=== PATIENT | female | born 1955 | race Caucasian/White ===

== ENCOUNTER 2022-06-24 06:05 | Emergency (ER) | payer MEDICARE, BC, SELFPAY ==
[2022-06-24 06:20] VITALS: BP 181/104; PULSE 99; RESP 20; TEMP 37.2; O2SAT 95; BMI 42.5
--- NOTE | 2022-06-24 06:33 | ED.GENADULT ---
HPI - General Adult General Chief complaint: Ear/Nose/Throat Problem Stated complaint: Bad cold for a week/sinus pain/ear pain Time Seen by Provider: 06/24/22 06:23 Source: patient Mode of arrival: ambulatory Limitations: no limitations History of Present Illness HPI narrative: 66-year-old female with a notable history of rheumatoid arthritis on therapy with methotrexate presents to the emergency department with a 7 day history of nasal congestion, loss of voice. Symptoms worsening to include ear pressure and increased facial pain today. She has been using Tylenol and facial steaming with some temporary improvement in her symptoms. Has not used any nasal steroids or decongestants. No fevers over 100.4. Did report a low-grade fever of 99 at home today only. No prior history of sinus surgeries or recurrent sinus infections. Has been around multiple family members in the last few days. Difficult to sleep at night due to the postnasal drip and congestion but no rosa shortness of breath. No known exposures to COVID. No chest pain, no shortness of breath, no GI changes. ROS is negative times 12 systems with the exception of the HEENT symptoms as described above. Past medical history notable for hypertension, rheumatoid arthritis, diet-controlled type 2 diabetes. Home medications Celebrex, Protonix, methotrexate, losartan. Surgically she denies any sinus or facial surgeries. Socially no smoking and no pertinent travel. Multiple antibiotic allergies including penicillin, sulfas, azithromycin. When I specifically asked she states that the azithromycin caused hives to the records report that this only caused nausea which would be much more common. Related Data Home Medications Medication Instructions Recorded Confirmed celecoxib 200 mg capsule 200 mg PO BID 06/24/22 06/24/22 folic acid 400 mcg tablet 400 mcg PO DAILY 06/24/22 06/24/22 losartan 100 mg tablet 100 mg PO DAILY 06/24/22 06/24/22 methotrexate sodium 2.5 mg tablet 2.5 mg PO 06/24/22 pantoprazole 40 mg tablet,delayed 40 mg PO DAILY 06/24/22 06/24/22 release (Protonix) Allergies Allergy/AdvReac Type Severity Reaction Status Date / Time aspirin Allergy Verified 06/24/22 06:24 Penicillins Allergy Verified 06/24/22 06:24 azithromycin [From Zithromax] AdvReac Nausea Verified 06/24/22 06:24 Sulfa (Sulfonamide AdvReac Verified 06/24/22 06:24 Antibiotics) [facility] Social History Smoking Status: Former smoker What tobacco products do you use: cigarettes Smoking quit date/years: >15 years ago Do you use any of these nicotine containing products: None How often do you have a drink containing alcohol: monthly or less AUDIT-C Alcohol total score: 1 Non-prescribed substance use: denies use Exam Const: Vital Signs, click to edit/add: Vital Signs - 24 hr 06/24/22 06:20 Temperature 99 F Pulse Rate [Pulse Oximeter] 99 Respiratory Rate 20 Blood Pressure [Ri ght Upper Arm] 181/104 H Pulse Oximetry 95 Oxygen Delivery Me thod Room Air Documenting provider has reviewed patient's vital signs: yes Common normals: no apparent distress General appearance: cooperative, comfortable and well kempt HENMT: Common normals: normocephalic, external ears normal and TM's normal bilaterally Head and scalp: normocephalic Face and sinus: sinus tenderness Nose: nares normal and other (Nasal passages with very mild erythema. Minimal swelling. Clear mucus ) External ear: external ears normal Tympanic membrane: TM's normal bilaterally Mouth: oral and palatal mucosa normal and other (Dentures noted. Mild erythema to the posterior pharynx with postnasal drip) Teeth and gingiva: dentures Other: Oropharynx with mild redness to the posterior pharynx, clear mucus postnasal drip but no swelling. No enlargement of tonsils. Eye: Common normals: conjunctivae normal and no scleral icterus Conjunctiva: conjunctiva(e) normal Neck & C-Spine: Common normals: full ROM Other: Very mild anterior cervical and submandibular lymphadenopathy. Resp: Common normals: normal respiratory effort, no use of accessory muscles and clear to auscultation bilaterally Effort & inspection: able to speak in complete sentences Auscultation: clear to auscultation bilaterally Cardio: Common normals: regular rate, regular rhythm, S1 normal heart sound, S2 normal heart sound, no murmurs and peripheral pulses 2+ throughout Rate: regular rate Rhythm: regular rhythm Heart sounds: S1 normal and S2 normal Peripheral pulses: pulses 2+ throughout Extremity: Common normals: normal capillary refill and no pedal edema Neuro: Speech: speech normal Motor exam: no tremor noted and no movement abnormalities noted Psych: Common normals: cooperative, affect normal and activity/motor behavior normal Appearance: well kempt Insight: insight good Judgement: judgment good Skin: Common normals: no rashes or lesions noted General skin exam: no rashes or lesions noted Course Course Hospital Course: Suspect viral etiology. Seven days duration with slight worsening of temperature is concerning though in a patient who is immunosuppressed. We discussed this briefly. I do recommend swabs specifically for RSV but to include COVID and influenza as well due to current high disease burden. Let her know that this will take about an hour to run. I will update her with the results and then we will further discuss the plan of care. Vital Signs Vital signs: Initial Vital Signs Temperature 99 F 06/24/22 06:20 Temperature Source Temporal Artery Scan 06/24/22 06:20 Pulse Rate 99 06/24/22 06:20 Respiratory Rate 20 06/24/22 06:20 Blood Pressure 181/104 H 06/24/22 06:20 Blood Pressure Mean 129 06/24/22 06:20 Blood Pressure Position Semi-Fowlers 06/24/22 06:20 Pulse Oximetry 95 06/24/22 06:20 Oxygen Delivery Method 06/24/22 06:20 Vital Signs Temperature 99 F 06/24/22 06:20 Pulse Rate 99 06/24/22 06:20 Respiratory Rate 20 06/24/22 06:20 Blood Pressure 181/104 H 06/24/22 06:20 Pulse Oximetry 95 06/24/22 06:20 Oxygen Delivery Method 06/24/22 06:20 Temperature 99 F 06/24/22 06:20 Pulse Rate 99 06/24/22 06:20 Respiratory Rate 20 06/24/22 06:20 Blood Pressure 181/104 H 06/24/22 06:20 Pulse Oximetry 95 06/24/22 06:20 Oxygen Delivery Method 06/24/22 06:20 Medical Decision Making MDM Narrative Medical decision making narrative: Swabs discussed with patient. RSV positive, as expected. Do not see any signs of a bacterial infection that would warrant antibiotic therapy even with her history of methotrexate use. Reviewed signs and symptoms of severe illness and alarm symptoms that would warrant ED presentation. Patient will purchase [id number] nasal saline and follow up with primary care if not improving in a couple of weeks. Lab Data Labs: Lab Results 06/24/22 06/24/22 Range/Units 06:29 06:29 SARS-CoV-2 (PCR) Cancelled Negative SARS-CoV-2 Influenza Type A (PCR) Cancelled Negative PCR FLU A Influenza Type B (PCR) Cancelled Negative PCR FLU B RSV (PCR) POSITIVE PCR RSV A (Negative) Discharge Plan Discharge Clinical Impression: Respiratory syncytial virus (RSV) infection Patient Disposition: Home, Self-Care Condition: Stable Instructions: Respiratory Syncytial Virus (ED) Additional Instructions: Your swabs are positive for RSV, a viral illness that can make very small children very ill. It is also common in adults and is characterized by a scratchy voice that travels into sinus congestion. This is not a bacterial infection and does not benefit in any way from antibiotics. I strongly recommend nasal saline spray which you can purchase [id number] and is very inexpensive. I would spray this in my nose every 2 hours while awake. It is okay to use decongestants, Tylenol, ibuprofen as needed for fevers and comfort. This tends to be a 3 week illness. If you have persistent daily fevers contact her primary care provider for further guidance. Even with the patient on methotrexate, there are no additional available treatment at this time. Please wear your mask when out in public for the next 2 weeks. Try to avoid unnecessary social outings until you have been feeling well for at least 48 hours. I am hoping that you will feel well for Thanksgiving. Activity Level: Light activity Discharge Diet: Regular Prescriptions: No Action celecoxib 200 mg capsule 200 mg PO BID Label Comments: TAKE ONE CAPSULE BY MOUTH TWICE A DAY WITH MEALS methotrexate sodium 2.5 mg tablet 2.5 mg PO Label Comments: TAKE 7 TABLETS BY MOUTH ONCE WEEKLY losartan 100 mg tablet 100 mg PO DAILY Label Comments: TAKE ONE TABLET BY MOUTH EVERY DAY pantoprazole [Protonix] 40 mg tablet,delayed release (DR/EC) 40 mg PO DAILY folic acid 400 mcg tablet 400 mcg PO DAILY Stand Alone Forms: [employer] Info Instructions
[2022-06-24 07:16] LABS: PCR FLU A Negative PCR FLU A (Negative); PCR FLU B Negative PCR FLU B (Negative); PCR RSV POSITIVE PCR RSV (Negative)
--- OUTSIDE RECORDS SUMMARY | 2022-06-24 07:17 | XMS_ITS | Clinical Summary ---
:1955 Author Organization [facility] [place] [address] Care Team Providers Name Role Phone Paolo Moran MD Unavailable Savanna Mckoy Primary Care Provider Ledy Sullivan MD Unavailable Allergies Active Allergy Reactions Severity Noted Date Comments Aspirin, Buffered GI Bleeding 08/22/2010 Phenylbutazone 02/25/2007 Penicillins Rash 02/25/2007 Sulfa (Sulfonamide Antibiotics) Rash 7 Azithromycin Nausea And Vomiting 02/25/2007 Medications Medication Sig Dispensed Refills Start Date End Date Status multivitamin (MVI) Take 1 tablet by 0 10/22/2012 Active tablet mouth once daily. folic acid 400 mcg Take 400 mcg by 0 Active tablet mouth once daily. methotrexate TAKE 7 TABLETS BY 84 Tablet 1 04/08/2022 Active (RHEUMATREX) 2.5 mg MOUTH ONCE WEEKLY tabletIndications: Rheumatoid arthritis, involving unspecified site, unspecified whether rheumatoid factor present (HC) losartan (COZAAR) 100 Take 1 Tablet 90 Tablet 3 04/23/2022 Active mg tabletIndications: (100 mg) by mouth Essential hypertension once daily. pantoprazole Take 1 Tablet (40 90 Tablet 3 04/23/2022 Active (PROTONIX) 40 mg mg) by mouth once delayed-release daily. tabletIndications: GI bleed due to NSAIDs celecoxib (CELEBREX) TAKE ONE CAPSULE 60 Capsule 3 05/15/2022 Active 200 mg BY MOUTH TWICE A capsuleIndications: DAY WITH MEALS Rheumatoid arthritis involving shoulder with positive rheumatoid factor, unspecified laterality (HC) Active Problems Problem Noted Date Basal cell carcinoma (BCC) of skin of face 04/23/2022 Overview: March 2022, [facility]. Morbid obesity 12/21/2020 GI bleed due to NSAIDs 11/27/2019 Diverticular hemorrhage 11/27/2019 NSAID induced gastritis 11/27/2019 Anxiety 08/28/2017 Pulmonary nodules 05/22/2011 Overview: Due for repeat CT scan of the chest: 02/08 2 Thyroid nodule 02/27/2011 Type II or unspecified type diabetes mellitus without mention of 07/03/2009 complication, not stated as uncontrolled Encounter for long-term (current) use of high-risk med ication 04/19/2009 Rheumatoid arthritis(714.0) 02/25/2007 Osteoarthrosis, unspecified whether generalized or loc alized, unspecified 02/25/2007 site Unspecified essential hypertension 02/25/2007 Resolved Problems Problem Noted Date Resolved Date Lactate blood increased 11/27/2019 12/02/2019 Encounter for long-term (current) use of high-risk 9 04/19/2009 medication Encounter for long-term (current) use of other medications 0 04/15/2007 04/19/2009 Encounters Date Type Specialty Care Team Description 05/20/2022 Ancillary Procedure 05/20/2022 Travel 05/15/2022 Refill Ledy Sullivan, Refill R hiwot GARCIA (Celecoxib) 04/23/2022 Office Visit Savanna Mckoy Medicare FIRST ANNUAL GREY Ravi Visit 04/23/2022 Travel 04/08/2022 Office Visit Ledy Sullivan, Follow U p (Last visit 10/08) 04/08/2022 Travel 04/06/2022 Refill Ledy Sullivan, Refill R hiwot GARCIA (Methotrexate) from Last 3 Months Immunizations Name Administration Dates Next Due AMB Influenza, IIV3 (Age >=3 06/17/2013, 05/15/2009 years)(Flu Clinic Only) COVID-19 vaccine (Moderna 10/05/2020, 09/07/2020 100mcg/0.5mL) PF, MDV Influenza, IIV3 (Age >=3 years) 06/10/2012, 05/16/2010, 0 02/2006, 05/11/2005, 05/11/2003 Influenza, IIV4 05/05/2020, 04/11/2020, 03/28/2019, 05/18/2018, 05/09/2017, 08/07/2016, 05/03/2014 Influenza, Inactivated AIIV4 (Age 65+ 05/20/2021 Years) Preserv Free Pneumococcal Poly,23-Valent 08/11/2000 (Pneumovax) Pneumococcal conj 13-Valent (Prevnar 12/21/2020 13) Td (Age >=7 Years) 12/19/1997 Tdap 08/28/2017, 09/21/2007 Zoster (Shingrix-RZV, recombinant) 06/14/2019, 03/28/2019 Family History Medical History Relation Name Comments Good Health Brother 2 Good Health Father Hypertension Mother Cancer-breast No Family History Cancer-ovarian No Family History Relation Name Status Comments Brother 1 Alive Brother 2 Father Alive Mother Alive Sister MVA Social History Tobacco Use Types Packs/Day Years Used Date Former Smoker 15 Quit: 08/11/18 89 Smokeless Tobacco: Never Used Tobacco Cessation: Counseling Given: Yes Alcohol Use Standard Drinks/Week Comments Yes 0 (1 standard drink = 0.6 oz pure alcoho l) very occasionally Alcohol Habits Answer Date Recorded How often do you have a drink containing alcohol? Not asked How many drinks containing alcohol do you have on a Not aske d typical day when you are drinking? How often do you have six or more drinks on one Not asked occasion? Comment: very occasionally 04/18/2010 Sex Assigned at Date Recorded Not on file Obstetrics History Para Term AB IAB SAB Ectopic Multiple Living Live Births 2 2 2 Date Outcome GA Total Labor/2nd/3rd Weight Sex Delivery Anes PTL Pamela A 1 A5 Name Clin Labor Para Para Last Filed Vital Signs Vital Sign Reading Time Taken Comments Blood Pressure 136/98 04/23/2022 9:12 AM CDT Pulse 90 04/23/2022 8:31 AM CDT Temperature 36.7 ??C (98.1 ??F) 10/17/2021 9:42 AM SNUBBER Respiratory Rate 16 04/08/2022 9:58 AM CDT Oxygen Saturation 96% 04/23/2022 8:31 AM CDT Inhaled Oxygen Concentration - - Weight 118.8 kg (262 lb) 04/23/2022 8:31 AM CDT Height 162 cm (5' 3.78) 04/23/2022 8:31 AM CDT Body Mass Index 45.28 04/23/2022 8:31 AM CDT Plan of Treatment Upcoming Encounters Date Type Specialty Care Team Description 11/11/2022 Office Visit Eloy Sullivan MD [address] [facility] [address] [place] [id number] (Wo rk) Health Maintenance Due Date Last Done Comments DEXA/DXA scan for age 65+ 2020 01/02/2011 COVID-19 vaccine series (4 - 08/26/2021 07/01/2021, 021, Booster for Moderna series) 09/07/2020 Pneumococcal series for age 65+ (3 12/21/2021 12/21/2020, 0 08/11/2000 - PPSV23 if available, else PCV20) Influenza for age 65+ 04/11/2022 05/20/2021, 05/05/2020, 04/11/2020, Additional history exists BMI (ht and wt on same day) for 04/23/2023 04/23/2022, 05/12, age 18+ 12/21/2020, Additional history exists Depression screening for age 12+ 04/23/2023 04/23/2022, , 11/29/2019, Additional history exists Medicare Wellness for age 65+ 04/23/2023 04/23/2022, 2020 Mammogram for age 45-75 05/20/2023 05/20/2022, 03/16/2021, 01/14/2020, Additional history exists Colonoscopy through age 75 12/09/2024 12/10/2019, , 12/10/2019, Additional history exists Lipids for age 45-75 04/23/2027 04/23/2022, 11/26/2019, 10/23/2018, Additional history exists Tetanus booster 08/28/2027 08/28/2017, 09/21/2007, 12/19/1997 Tdap Completed 08/28/2017, 09/21/2007 Zoster (shingles) series for age Completed 06/14/2019, 50+ Hepatitis C screening for age Completed 11/26/2019 18-79 Procedures Procedure Name Priority Date/Time Associated Diagnosis Comme nts XR MAMMO BILAT Routine 05/20/2022 8:11 AM Visit for screening Results for this SCREENING CDT mammogram procedure are i n the results section. URINE ALBUMIN TO Routine 04/23/2022 9:25 AM Diabetes mellitus Results for this CREATININE RATIO, CDT without complication pr ocedure are in RANDOM (HC) the results section. HEMOGLOBIN A1C Routine 04/23/2022 9:21 AM Diabetes mellitus Re sults for this CDT without complication procedu re are in (HC) the results section. LIPID PANEL W Routine 04/23/2022 9:21 AM Screening for lipid R esults for this REFLEX MEASURED LDL CDT disorders procedur e are in the results section. COMP METABOLIC Routine 04/08/2022 10:40 Rheumatoid arthritis, Results for this PANEL AM CDT involving unspecified proced ure are in site, unspecified the result s whether rheumatoid section. factor present (HC) CBC W PLT NO DIFF Routine 04/08/2022 10:40 Rheumatoid arthriti s, Results for this AM CDT involving unspecified proced ure are in site, unspecified the result s whether rheumatoid section. factor present (HC) from Last 3 Months Results XR MAMMO BILAT SCREENING (05/20/2022 8:11 AM CDT) Anatomical Region Laterality Modality BREASTS, Breast Left, Breast Right Bilateral Mammo graphy Specimen (Source) Anatomical Location Collection Method / Collectio n Time Received Time / Laterality Volume Impressions 05/20/2022 3:44 PM CDT ??There is no radiographic evidence for malignancy. ??Recommend annual mammograms. MAMMOGRAM ASSESSMENT: ??ACR 1 Negative PATIENTS: You will also receive a letter with your examination results in an easy to read format. ??If you have qu estions about your results, please contact your referring provider. Narrative 05/20/2022 3:44 PM CDT For Patients: As a result of the Century Cures Act, medical imaging exams and procedure reports are released immediately into your electronic medical record. You may view this report before your referring provider. If you have questions, please contact [facility] care provider. XR MAMMO BILAT SCREENING [[id number]] CLINICAL HISTORY: ??This is an asymptoma tic 66 y.o. patient. INDICATION FOR EXAM: Mammogram Screening . TECHNIQUE: CC & MLO views were obtained. ??This study was evaluated with the assistance of Computer-Aided Detecti on. COMPARISON FILM: Yes 03/16/21 [employer] 10/03/17 [employer] FINDINGS: ??The breasts have scattered a reas of fibroglandular density. There are no dominant masses, suspicious micro calcifications or areas of architectural distortion. Savanna EDMONDS MAMMO URINE ALBUMIN TO CREATININE RATIO, RANDOM (04/23/2022 9:25 AM CDT) athologist Signature ALB RAND URINE 9.7 mg/L 04/23/2022 [facility] 8:24 PM CDT LABORATORY-CENT RAL LABORATORY CREATININE,URIN 1.36 g/L 04/23/2022 [facility] E 8:24 PM CDT LABORATORY-CENT [facility]AL LABORATORY ALBUMIN TO 7.1 <30.0 mg/g 04/23/2022 [facility] CREATININE creat 8:24 PM CDT LABORATORY-CENT RATIO,RAND UR RAL LABORATORY Specimen Anatomical Collection Method Collection Time Receive d Time (Source) Location / / Volume Laterality Urine URINE SPECIMEN / Non-Blood / 04/23/2022 9:25 AM 04/23 9:25 Unknown Unknown CDT AM CDT Narrative [facility] LABORATORY-CENTRAL LABORAT ORY - 04/23/2022 8:24 PM CDT If Albumin to Creatinine Ratio is elevated, consider the following: ? Elevations seen with incipient nephr opathy associated ?? with diabetes mellitus or hypertensi on. Stress, exercise, ?? hematuria, and urinary tract infecti on may also produce ?? elevated results. If clinically mary anne cated, confirm with ?? 24 Hour Albumin to Creatinine Ratio. Savanna EDMONDS URINE Performing Organization Address City/State/ZIP Code Phon e Number [facility] [address] [place] [address] LABORATORY-CENTRAL 1999 LABORATORY (ABNORMAL) LIPID PANEL W REFLEX MEASURED LDL (04/23/2022 9:21 AM CDT) Patholo gist Method Time Signature CHOLESTEROL,TOTAL 183 100 - 199 04/23/2022 [facility] mg/dL 7:21 PM CDT LABORATORY-ANGLE TRAL LABORATORY TRIGLYCERIDES 167 (H) <150 04/23/2022 [facility] mg/dL 7:21 PM CDT LABORATORY-ANG[facility]AL LABORATORY HDL CHOLESTEROL 55 >40 mg/dL 04/23/2022 [facility] 7:21 PM CDT LABORATORY-[facility] LABORATORY NON-HDL 128 <145 04/23/2022 [facility] CHOLESTEROL mg/dl 7:21 PM CDT LABORATORY-ANG[facility]AL LABORATORY CHOL/HDL RATIO 3.33 <4.50 04/23/2022 [facility] 7:21 PM CDT LABORATORY-[facility] LABORATORY LDL CHOLESTEROL 95 <=130 04/23/2022 [facility] mg/dL 7:21 PM CDT LABORATORY-[facility] LABORATORY VLDL CHOLESTEROL 33 (H) <=30 04/23/2022 [facility] mg/dL 7:21 PM CDT LABORATORY-[facility] LABORATORY PROVIDER ORDERED RANDOM 04/23/2022 [facility] STATUS 7:21 PM CDT LABORATORY-ANG[facility] TRAL LABORATORY Specimen Anatomical Collection Method / Collection Time Recei quita Time (Source) Location / Volume Laterality Blood BLOOD SPECIMEN / Venipuncture / 04/23/2022 9:21 2021 9:25 Unknown Unknown AM CDT AM CDT Savanna EDMONDS CHEMISTRY Performing Organization Address City/State/ZIP Code Phon e Number [facility] [address] [place] [address] LABORATORY-CENTRAL 2000 LABORATORY HEMOGLOBIN A1C MONITORING (POCT) (04/23/2022 9:21 AM CDT) P athologist Signature HEMOGLOBIN A1C 6.3 <=6.4 % 04/23/2022 [facility] MON[facility] 9:34 AM CDT [facility] (POCT) [facility] Specimen Anatomical Collection Method / Collection Time Recei quita Time (Source) Location / Volume Laterality Blood BLOOD SPECIMEN / Venipuncture / 04/23/2022 9:21 2021 9:25 Unknown Unknown AM CDT AM CDT Narrative [facility] - 2021 9:34 AM CDT ? (<=6.9%) ? Indicates good control ? (7.0% to 7.9%) ? Indicates fa ir control ? (>=8.0%) ? Indicates poor control ?? NOTE: ??These thresholds are guideli ailyn and ?individual targets may va ry. Falsely low levels may be seen with: Recent Transfusion, Recent Significant B lood Loss, Hemolytic Diseases, or Falsely elevated levels may be seen with : Untreated Anemias, Splenectomy ? Savanna EDMONDS CHEMISTRY Performing Organization Address City/State/ZIP Code Phon e Number [facility] [address] [place] [address] CBC W PLT NO DIFF (04/08/2022 10:40 AM CDT) P athologist Signature WHITE BLOOD 8.6 4.5 - 11.0 04/08/2022 [facility] COUNT thou/cu mm 11:46 AM CDT LABORATORY RED BLOOD COUNT 4.42 4.00 - 04/[facility] 5.20 11:46 AM CDT LABORATORY mil/cu mm HEMOGLOBIN 14.8 12.0 - 04/08/2022 [facility] 16.0 g/dL 11:46 AM CDT LABORATORY HEMATOCRIT 43.4 33.0 - 04/08/2022 [facility] 51.0 % 11:46 AM CDT LABORATORY MCV 98 80 - 100 04/08/2022 [facility] fL 11:46 AM CDT LABORATORY MCH 33.5 26.0 - 04/08/2022 [facility] 34.0 pg 11:46 AM CDT LABORATORY MCHC 34.1 32.0 - 04/08/2022 [facility] 36.0 g/dL 11:46 AM CDT LABORATORY RDW 12.5 11.5 - 04/08/2022 [facility] 15.5 % 11:46 AM CDT LABORATORY PLATELET COUNT 200 140 - 440 04/08/2022 [facility] L thou/cu mm 11:46 AM CDT LABORATORY MPV 10.9 6.5 - 11.0 04/08/2022 [facility] fL 11:46 AM CDT LABORATORY NRBC 0.0 % 04/08/2022 [facility] 11:46 AM CDT LABORATORY ABS NRBC 0.0 thou /cu 04/08/2022 [facility] mm 11:46 AM CDT LABORATORY Specimen Anatomical Collection Method / Collection Time Recei quita Time (Source) Location / Volume Laterality Blood BLOOD SPECIMEN / Venipuncture / 04/08/2022 10:40 04/08 Unknown Unknown AM CDT 10:43 AM CDT Ledy Sullivan MD HEMATOLOGY Performing Organization Address City/State/ZIP Code Phon e Number [facility] LABORATORY SENDOUT INTERNAL ZIP [place] [id number] [place] [address] (ABNORMAL) COMP METABOLIC PANEL (04/08/2022 10:40 AM CDT) [facility] gist Method Time Signature SODIUM 138 135 - 145 04/08/2022 [facility] mmol/L 12:07 PM [facility] LABORATORY POTASSIUM 4.4 3.5 - 5.0 04/08/2022 [facility] mmol/L 12:07 PM [facility] LABORATORY CHLORIDE 103 98 - 110 04/08/2022 [facility] mmol/L 12:07 PM [facility] LABOR[facility]ORY CO2,TOTAL 25 21 - 31 04/08/2022 [facility] mmol/L 12:07 PM [facility] LABOR[facility]ORY ANION GAP 10 5 - 18 04/08/2022 [facility] 12:07 PM [facility] LABOR[facility]ORY GLUCOSE 129 (H) 65 - 100 04/08/2022 [facility] mg/dL 12:07 PM [facility] LABOR[facility]ORY CALCIUM 9.4 8.5 - 10.5 04/08/2022 [facility] mg/dL 12:07 PM [facility] LAB[facility] BUN 20 8 - 25 04/08/2022 [facility] mg/dL 12:07 PM [facility] CREATININE 0.92 0.57 - 04/08/2022 [facility] 1.11 mg/dL 12:07 PM [facility] LABORATORY BUN/CREAT RATIO 22 (H) 10 - 20 04/08/2022 [facility] 12:07 PM [facility] LABOR[facility]ORY ALBUMIN 4.2 3.2 - 4.6 04/08/2022 [facility] g/dL 12:07 PM [facility] LAB[facility] PROTEIN,TOTAL 7.5 6.0 - 8.0 04/08/2022 [facility] g/dL 12:07 PM [facility] LAB[facility] GLOBULIN 3.3 2.0 - 3.7 04/08/2022 [facility] g/dL 12:07 PM [facility] LABOR[facility] A/G RATIO 1.3 1.0 - 2.0 04/08/2022 [facility] 12:07 PM [facility] LAB[facility] BILIRUBIN,TOTAL 0.5 0.2 - 1.2 04/08/2022 [facility] mg/dL 12:07 PM [facility] LABORATORY ALK PHOSPHATASE 101 50 - 136 04/08/2022 [facility] IU/L 12:07 PM [facility] LAB[facility] ALT (SGPT) 12 8 - 45 04/08/2022 [facility] IU/L 12:07 PM [facility] AST (SGOT) 20 2 - 40 04/08/2022 [facility] IU/L 12:07 PM [facility] LABOR[facility]ORY eGFR 69 (L) >90 04/08/2022 [facility] mL/min/1.7 12:07 [facility] 3m2 LABORATORY Comment: As of 2021, eGFR is calcu lated by the CKD-EPI creatinine equation without race adjustment. eGFR can be inf luenced by muscle mass, exercise, and diet. The reported eGFR is an estimation only and is only applicable if the renal function is stable. Specimen Anatomical Collection Method / Collection Time Recei quita Time (Source) Location / Volume Laterality Blood BLOOD SPECIMEN / Venipuncture / 04/08/2022 10:40 04/08 Unknown Unknown AM CDT 10:43 AM CDT Ledy Sullivan MD CHEMISTRY Performing Organization Address City/State/ZIP Code Phon e Number [facility] LABORATORY SENDOUT INTERNAL ZIP [place], [place] [id number] [place] [address] from Last 3 Months Insurance Payer Benefit Plan / Subscriber ID Effective Dates Phone Addre ss Type Group [employer] [id number] 2014-Prese [address] [place] [address] [place] [employer] [place] [id number] 2020-Presen [address] [address] [place], [place] PB ONLY [phone] Haris Cohen Personal/Famil Spouse 1955 [id number] (Home) [facility] [phone] Jere MEDELLIN (Work) [address] [employer], [place] 08/11/2000 ATTN CAROLYN MEDELLIN Health/Kylah (Home) [place] [address] [place] [address] Advance Directives Latest Code Status on File Code Status Date Activated Date Inactivated Comments Full Code 11/27/2019 10:49 AM 11/28/2019 9:05 PM Code Status Discussion: Discussed Full Code 11/27/2019 10:26 AM 11/27/2019 10:49 AM Care Teams Ultrasonic Tester Relationship Specialty Start Date End Date Savanna Mckoy PA PCP - General Family Practice 08/28/17 [address] [place] [address] Paolo Moran MD Surgery - Orthopedics 01/08/12 Ledy Sullivan MD Rheumatology Rheumatology 03/29/19 [address] [place] [address]
--- OUTSIDE RECORDS SUMMARY | 2022-06-24 07:17 | XMS_ITS | Continuity of Care Document ---
:1955 Author Organization [facility] Address [address] [address] [place] [address] Phone Care Team Providers Name Role Phone Jose GARCIA, James Unavailable Unavailable Allergies, Adverse Reactions, Alerts Substance Reaction Status Criticality phenylbutazone Active No Information Penicillins Rash Active No Information Sulfa (Sulfonamide Antibiotics) Rash Active No Information azithromycin Nausea And Vomiting Active No Informati on magnesium GI Bleeding Active No Information CALCIUM CARBONATE GI Bleeding Active No Information aspirin GI Bleeding Active No Information aluminum hydroxide GI Bleeding Active No Informatio n Medications Medication Instructions Dosage Effective Dates Status Comment s (start - stop) multivitamin tablet take 1 Tablet by Oral 1 Tablet - Ac tive route every day pantoprazole 40 mg take 1 tablet by oral 40 MG - Act mariah tablet,delayed route every day release prednisone 10 mg take 4 tablet by oral 40 MG - Activ e tablet route every day for 2 weeks, then 3.5 tablets daily for 1 week, then 3 tablets daily for 1 week, then 2.5 tablets daily for 1 week, then 2 tablets daily for 1 week, then 1.5 tablets daily for 1 week, then 1 tablet daily for 1 week, then 1/2 tablet for 1week. losartan 50 mg tablet TAKE ONE TABLET BY - Act mariah MOUTH EVERY DAY piroxicam 20 mg Take 1 capsule by - Active capsule mouth once daily with a meal. methotrexate sodium TAKE 7 TABLETS BY - Active 2.5 mg tablet MOUTH ONCE WEEKLY hydroxyzine HCl 50 mg Take 1-2 tabs every 6 - Active tablet hours as needed for anxiety, and take 1-2 tabs at bedtime as needed. folic acid 800 mcg Take 1 tablet by - Active tablet mouth once daily. Procedures Procedure Date Colonoscopy Flex; W/remov Les- Ugi Endo; W/bx 1/mx Level Iv-surg Path Gross/micro Immunocytochemistry, Each Antibody Virtual Visit [facility] [place] Advance Directives Directive Yes / No Effective Date File Name No Information Encounters Encounter Practice Location Reason(s) Diagnoses Date Provider Provide rs Description For Visit Copied on Encounter [facility] No Information [facility] Paola EDMONDS, 0 James. [address] [address], [facility] s, [place], [place], [place] [id number], [facility], [facility] tel:+ [place], [place], [id number] , [place]. tel: [phone] [facility] [place] [facility] Emiliano Keyon GARCIA Referr ing [facility] ulcerHiatal Dahlia. Provider : Paola EDMONDS, [facility]orectal [address] [place] [address], colonoscopyDivertic [facility], [address] ulosis of colon [place], [place], [place], without [address], [id number], divert[facility]itis[facility]en [facility] aBenign neoplasm of [place], [place], , [place] , tel: transverse [phone] colonDiaphragmatic , [place]. tel:+ [phone] hernia without tel: [phone] obstruction or [phone] gangreneDvrtclos of lg int w/o perforation or abscess w/o bleedingBenign neoplasm of transverse colon Virtual [facility] GI Hematochezia Jose Referring Visit [facility] Symptoms Provider: [facility] GREY, or [address] 30-44 [address] [place] [address], (chief [facility], [address]) [address] [place], [place], [place], [address], [id number], [address] [place] [address] , [place], tel: [place], [phone] tel: , . [phone] tel: [phone] SAMEER Asencio No Information Apr-2 Garcia Referring [facility] 0-202 MD Provider: Min Bingham. Referral [address] Self. [address], [facility] s, [place], [place], [facility] [id number], [facility], [facility] tel: [place], [phone] , . tel: [phone] Family History Family Member Type Diagnosis Age At Onset Father Problem (finding) Alive and well Brother Problem (finding) Alive and well Mother Problem (finding) hypertension Immunizations Vaccine Date Status Comments zoster vaccine recombinant administered Note: [facility] bi-directional interface ; Sour ce: Other Registry Fluzone Quad 6mo or older administered Note: [facility] bi-directional interface ; Sour ce: Other Registry zoster vaccine recombinant administered Note: [facility] bi-directional interface ; Sour ce: Other Registry Fluzone Quad 6mo or older administered Note: [facility] bi-directional interface ; Sour ce: Other Registry tetanus toxoid, reduced administered Note: [facility] bi-directional diphtheria toxoid, and interface ; Source: Other acellular pertussis vaccine, Reg istry adsorbed Fluzone Quad 6mo or older administered Note: [facility] bi-directional interface ; Sour ce: Other Registry Fluzone Quad 6mo or older administered Note: [facility] bi-directional interface ; Sour ce: Other Registry Fluzone Quad 6mo or older administered Note: [facility] bi-directional interface ; Sour ce: Other Registry Influenza, seasonal, injectable administered Note: [facility] bi-directional interface ; Sour ce: Other Registry Influenza, seasonal, injectable administered Note: [facility] bi-directional interface ; Sour ce: Other Registry tetanus toxoid, reduced administered Note: [facility] bi-directional diphtheria toxoid, and interface ; Source: Other acellular pertussis vaccine, Reg istry adsorbed Influenza, seasonal, injectable administered Note: [facility] bi-directional interface ; Sour ce: Other Registry Influenza, seasonal, injectable administered Note: [facility] bi-directional interface ; Sour ce: Other Registry Influenza, seasonal, injectable administered Note: [facility] bi-directional interface ; Sour ce: Other Registry Payers Payer name Insurance type Covered green party ID Authorization(s ) [employer] [id number] Social History Type Description Quantity Date Captured Comments Alcohol Use Details Unknown Caffeine Use Details Unknown Tobacco Use Status No Information Smoking Status No Information Sex Female Chief Complaint And Reason For Visit No Information Reason For Referral Reason For Referral No Information Plan Of Treatment Date Type Action Status Referral Ordered: ordered Colonoscopy Appointment date/timeframe: 12/10/2019 Referral Ordered: ordered EGD Appointment date/timeframe: 12/10/2019 History Of Present Illness Encounter Date Complaint History Of Present I llness GI Symptoms or Concerns I had the pleasu re of having a telephone consultation with Ms Andre Cohen, 1955.Ms. Masha hernandez consented for a telephone consultati on due to the COVID-19 pandemic.We were the only ones on the line together.We spoke fo r approximately 18 minutes, and the lev el of clinical decision making was moderate to high.CHIEF COMPLAINTJose Antonioatokassandra Tello is a 64-year-old woman with past [facility] history of rheumatoid arthritis and osteoa rthritis, who uses NSAIDs (piroxicam) chronica lly, who was admitted to [facility] in [place], [place] from November 26 throug h November 27 with complaint of hematochezia.Doreenc y states that she had been passing bright red b lood, maroon blood and some darker clots pe r rectum for several days prior to her admissi on at the hospital. She denied any abdominal pain whatsoever. The bleeding was coming initially with bowel movements, but then there were some episodes with bleeding withou t any passage of stool.She went to the e Functional Status Date Functional Assessment No Information Instructions Date Instruction Additional Informati on Hiatal Hernia Related to Hiatal he rnia High Fiber Diet Related to Hiatal he rnia Diverticulosis/Diverticulitis Related to Diverticulosis of colon without diverticulit is Colon Cancer Prevention Related to Hiata l hernia Colon Polyps Related to Hiatal he rnia 1. Upper endoscopy with close Related to Hematochezia inspection for peptic ulcer disease and biopsies of the stomach to rule out H. pylori.2. Colonoscopy to look for diverticulosis or other cause of bleeding. We will also look for colon polyps, as it has been 10 years since her last colonoscopy.To the endoscopist, please send me a copy of the reports, and I will get in touch with Christel after the procedures.Thank you so much for involving me in the care of Ms. Cohen. Assessments Type Assessment Date No Information Patient Care Teams Name Effective Dates (start - stop) Status M caridad No Information
[2022-06-24 07:23] LABS: SARS PCR* Negative SARS-CoV-2 (Negative)
== END 2022-06-24 07:57 | disposition home or self-care (01) ==
PROVIDERS: Emergency Provider Family Medicine; PCP Physician Assistant
DX: J06.9 Acute upper respiratory infection, unspecified (principal); B97.4 Respiratory syncytial virus as the cause of diseases classified elsewhere
CPT/HCPCS: 87502; 87631; 87634; 87635; 99282; 99283

== ENCOUNTER 2022-08-26 18:07 | Emergency (ER) | payer MEDICARE, BC, SELFPAY ==
[2022-08-26 18:13] VITALS: BP 215/107; PULSE 91; RESP 18; TEMP 36.3; O2SAT 96
--- NOTE | 2022-08-26 18:26 | ED_ITS ---
HPI - General Adult General Chief complaint: Lower Extremity Swelling Stated complaint: Swelling in Rt leg,Urgent Care sent for US Time Seen by Provider: 08/26/22 18:10 History of Present Illness HPI narrative: This 67-year-old female was sent here from urgent care to evaluate for swelling in her right lower leg. She states that started a couple days ago. She does not report any injury event. She has not had any long car ride recently but did travel a couple weeks ago around [place]. She does not have any prior history of blood clot and does not report any chest pain or shortness of breath. She states that she does not have any pain in her leg but notes some swelling in the right lower extremity. Related Data Home Medications Medication Instructions Recorded Confirmed celecoxib 200 mg capsule 200 mg PO BID 06/24/22 08/26/22 folic acid 400 mcg tablet 400 mcg PO DAILY 06/24/22 08/26/22 losartan 100 mg tablet 100 mg PO DAILY 06/24/22 08/26/22 methotrexate sodium 2.5 mg tablet 17.5 mg PO .weekly 06/24/22 08/26/22 pantoprazole 40 mg tablet,delayed 40 mg PO DAILY 06/24/22 08/26/22 release (Protonix) Previous Rx's Medication Instructions Recorded apixaban 5 mg (74 tabs) tablets in See Rx Instructions PO .COMPLEX 08/26/22 a dose pack (Eliquis DVT-PE Treat #74 ea 30D Start) Allergies Allergy/AdvReac Type Severity Reaction Status Date / Time calcium carbonate Allergy Mild Verified 08/26/22 18:18 magnesium Allergy Mild Verified 08/26/22 18:18 aspirin Allergy Verified 08/26/22 18:18 Penicillins Allergy Verified 08/26/22 18:18 azithromycin [From Zithromax] AdvReac Nausea Verified 08/26/22 18:18 Sulfa (Sulfonamide AdvReac Verified 08/26/22 18:18 Antibiotics) aluminum hydroxide Allergy Mild Uncoded 08/26/22 18:18 Review of Systems Status of ROS: Reports: 10 or more systems reviewed and unremarkable except as noted in History and below Narrative: Constitutional: No fevers, no weight gain or loss. Eyes: No discharge. No vision changes. HENT: No congestion, no sore throat, no ear pain. Cardiovascular: No chest pain, no palpitations. Respiratory: No shortness of breath, no wheezes, no cough. Gastrointestinal: No abdominal pain, no vomiting, no diarrhea. Genitourinary: No dysuria, no hematuria. Musculoskeletal: Normal range of motion. Skin: No rashes, no pruritis. Neurological: No dizziness, weakness, sensory change, speech change. Endo/Heme/Allergies: No bruising or bleeding. No polydipsia. Pysch: no suicidality, no anxiety, no insomnia. All other systems reviewed and are negative. [facility] Social History (Updated 06/24/22 @ 07:45 by Karin Echevarria MD) Smoking Status: Former smoker What tobacco products do you use: cigarettes Smoking quit date/years: >15 years ago Do you use any of these nicotine containing products: None Second hand tobacco smoke exposure: No How often do you have a drink containing alcohol: monthly or less AUDIT-C Alcohol total score: 1 Non-prescribed substance use: denies use Exam Narrative: Exam Narrative: Constitutional: Well-developed, well-nourished, no acute distress. HEENT: Normocephalic, atraumatic. Neck: Normal range of motion. Nontender. Supple. Heart: Regular. No murmurs. Normal rate. Intact distal pulses. Lungs: Clear to auscultation. No chest discomfort. No wheezes, rhonchi, or rales. Abdomen: Normal bowel sounds. Nontender. No rebound tenderness. Genitalia: Deferred. Back: No midline tenderness. Normal range of motion. Extremities: Normal range of motion. No injury. Patient states that her right lower extremity is swollen but by my exam I do not notice an obvious size in crease when comparing with the left leg. There is no sign of injury. She has no pain in either lower extremity. 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 Skin: Intact. No rash. Warm. No erythema or pallor. Neurologic: No altered sensation. No weakness. Alert and oriented. Psychiatric: No suicidality. No anxiety or depression. No insomnia. Nursing notes and vitals signs are reviewed. Const: Vital Signs, click to edit/add: Vital Signs - 24 hr 08/26/22 18:13 Temperature 97.3 F L Pulse Rate [Right Pulse Oximeter] 91 Respiratory Rate 18 Blood Pressure [Ri ght Upper Arm] 215/107 H Pulse Oximetry 96 Oxygen Delivery Me thod Room Air Course Vital Signs Vital signs: Initial Vital Signs Temperature 97.3 F L 08/26/22 18:13 Temperature Source Temporal Artery Scan 08/26/22 18:13 Pulse Rate 91 08/26/22 18:13 Pulse Rhythm 08/26/22 18:13 Pulse Strength 3+ Normal 08/26/22 18:13 Respiratory Rate 18 08/26/22 18:13 Blood Pressure 215/107 H 08/26/22 18:13 Blood Pressure Mean 143 08/26/22 18:13 Blood Pressure Position Sitting 08/26/22 18:13 Pulse Oximetry 96 08/26/22 18:13 Oxygen Delivery Method 08/26/22 18:13 Vital Signs Temperature 97.3 F L 08/26/22 18:13 Pulse Rate 91 08/26/22 18:13 Respiratory Rate 18 08/26/22 18:13 Blood Pressure 215/107 H 08/26/22 18:13 Pulse Oximetry 96 08/26/22 18:13 Oxygen Delivery Method 08/26/22 18:13 Temperature 97.3 F L 08/26/22 18:13 Pulse Rate 91 08/26/22 18:13 Respiratory Rate 18 08/26/22 18:13 Blood Pressure 215/107 H 08/26/22 18:13 Pulse Oximetry 96 08/26/22 18:13 Oxygen Delivery Method 08/26/22 18:13 Medical Decision Making MDM Narrative Medical decision making narrative: This patient comes in reporting swelling in her right leg. She has enough obesity where I did not observe obvious swelling in the right lower extremity. She also states that she is not having any pain. Ultrasound imaging of the right lower extremity however does show extensive clot throughout the leg. She does not have any recent injury event and has not had blood clots in the past. She did have a long car ride a couple weeks ago but states that there were frequent stops with a got out and ambulated. She arrives with normal vital signs and denies having any lightheadedness, chest pain, or shortness of breath. Despite this she is PERC positive so an IV was established for a chest CT scan. The patient received an oral dose of Eliquis 10 mg as soon as the ultrasound findings returned. CT imaging of the chest with IV contrast returns with evidence of peripheral blood clot in both lower lungs and in the right upper lung. Her right pulmonary artery has some dilation suggesting pulmonary hypertension. There is no right heart strain. The patient continues to have normal vital signs and is in no acute distress. She does not have any chest pain or shortness of breath. She received a prescription for Eliquis and is instructed to follow up soon with her primary physician or return if worsening. Lab Data Labs: Lab Results 08/26/22 08/26/22 08/26/22 Range/Units 19:33 19:33 19:33 WBC 10.18 (4.50-11.00) K/uL RBC 4.23 (4.00-5.20) m/uL Hgb 14.0 (12.0-16.0) gm/dL Hct 41.7 (33.0-51.0) % MCV 99 (80-100) fL MCH 33 (26-34) pg MCHC 34 (32-36) gm/dL RDW Coeff of Jack 13.1 (11.5-15.5) % Plt Count 193 (140-440) K/uL Neut % (Auto) 76.9 H (42.0-72.0) % Lymph % (Auto) 12.7 L (20-44) % Montgomery % (Auto) 6.7 (0.0-11.0) % Eos % (Auto) 2.8 (0.0-7.0) % Baso % (Auto) 0.4 (0.0-3.0) % Neut # (Auto) 7.80 H (1.7-7.0) K/uL Lymph # (Auto) 1.30 (0.90-2.90) K/uL Montgomery # (Auto) 0.70 (0.00-0.90) K/UL Eos # (Auto) 0.29 (0.00-0.50) K/uL Baso # (Auto) 0.04 (0.00-0.30) K/uL ESR 32 H (2-20) mm/hr INR 1.37 H (0.91-1.10) Sodium (135-149) mmol/L Potassium (3.6-5.1) mmol/L Chloride (96-114) mmol/L Carbon Dioxide (20-32) mmol/L BUN (7-30) mg/dL Creatinine (0.5-1.5) mg/dL Estimated GFR ml/min Glucose (60-115) mg/dL Calcium (8.4-10.6) mg/dL Total Bilirubin (0.1-1.5) mg/dL Direct Bilirubin (0.0-0.5) mg/dL AST (12-35) U/L ALT (4-35) U/L Alkaline Phosphatase (40-150) U/L Total Protein (6.0-8.3) g/dL Albumin (3.3-5.0) g/dL 08/26/22 Range/Units 19:33 WBC (4.50-11.00) K/uL RBC (4.00-5.20) m/uL Hgb (12.0-16.0) gm/dL Hct (33.0-51.0) % MCV (80-100) fL MCH (26-34) pg MCHC (32-36) gm/dL RDW Coeff of Jack (11.5-15.5) % Plt Count (140-440) K/uL Neut % (Auto) (42.0-72.0) % Lymph % (Auto) (20-44) % Montgomery % (Auto) (0.0-11.0) % Eos % (Auto) (0.0-7.0) % Baso % (Auto) (0.0-3.0) % Neut # (Auto) (1.7-7.0) K/uL Lymph # (Auto) (0.90-2.90) K/uL Montgomery # (Auto) (0.00-0.90) K/UL Eos # (Auto) (0.00-0.50) K/uL Baso # (Auto) (0.00-0.30) K/uL ESR (2-20) mm/hr INR (0.91-1.10) Sodium 139 (135-149) mmol/L Potassium 4.1 (3.6-5.1) mmol/L Chloride 104 (96-114) mmol/L Carbon Dioxide 30 (20-32) mmol/L BUN 17 (7-30) mg/dL Creatinine 0.8 (0.5-1.5) mg/dL Estimated GFR 81 ml/min Glucose 153 H (60-115) mg/dL Calcium 9.1 (8.4-10.6) mg/dL Total Bilirubin 0.7 (0.1-1.5) mg/dL Direct Bilirubin 0.3 (0.0-0.5) mg/dL AST 22 (12-35) U/L ALT 19 (4-35) U/L Alkaline Phosphatase 111 (40-150) U/L Total Protein 7.8 (6.0-8.3) g/dL Albumin 4.3 (3.3-5.0) g/dL Imaging Data US R Lower Extremity: Radiologist's impression: Extensive occlusive DVT in the right lower extremity from distal common femoral vein through past the popliteal vein. CT scan - chest: Radiologist's impression: FINDINGS: Cardiovascular: Acute pulmonary emboli are present in the lower lobes bilaterally and in the right upper lobe. Moderate enlargement of the main pulmonary artery is present and measures 3.7 cm in maximal short axis. The heart has an unremarkable appearance and size. No sign of aneurysm in the thoracic aorta. Mediastinum: No mass or adenopathy seen. Enlargement of the left thyroid lobe is no with a dominant hypodense lesion measuring 4.2 cm. Lung: Both lungs are unremarkable in appearance. Pleura and pericardium: No sign of pleural effusion seen. No significant pericardial effusion is present. Chest wall and axilla: No mass or adenopathy seen. Bone: Unremarkable for age. Upper abdomen: Unremarkable. IMPRESSIONS: 1. Acute pulmonary emboli are present in the lower lobes bilaterally and in the right upper lobe. 2. Enlargement of the left thyroid lobe is no with a dominant hypodense lesion measuring 4.2 cm. Further assessment with outpatient thyroid ultrasound is recommended. 3. Moderate enlargement of the main pulmonary artery is present and measures 3.7 cm in maximal short axis. This is likely due to pulmonary hypertension. ECG Data Attestation: I personally reviewed and interpreted this ECG as follows: Interpretation: Normal sinus rhythm. Rate is 75 beats per minute. There are no ST or T-wave abnormalities. Discharge Plan Discharge Clinical Impression: Deep venous thrombosis, Pulmonary embolism Patient Disposition: Home, Self-Care Condition: Unchanged Additional Instructions: Take medication as prescribed. Follow up with primary physician this week. Return if worsening symptoms occur. Prescriptions: New Eliquis DVT-PE Treat 30D Start 5 mg (74 tabs) tablets,dose pack See Rx Instructions PO .COMPLEX Qty: 74 0RF Rx Instructions: orally per package directions No Action celecoxib 200 mg capsule 200 mg PO BID Label Comments: TAKE ONE CAPSULE BY MOUTH TWICE A DAY WITH MEALS methotrexate sodium 2.5 mg tablet 17.5 mg PO .weekly Label Comments: TAKE 7 TABLETS BY MOUTH ONCE WEEKLY losartan 100 mg tablet 100 mg PO DAILY Label Comments: TAKE ONE TABLET BY MOUTH EVERY DAY pantoprazole [Protonix] 40 mg tablet,delayed release (DR/EC) 40 mg PO DAILY folic acid 400 mcg tablet 400 mcg PO DAILY Follow Up/Referrals: Savanna Mckoy PA [Primary Care Provider] - Stand Alone Forms: [facility] Info Instructions
--- NOTE | 2022-08-26 18:26 | CRLHL7_ITS ---
For Patients: As a result of the Century Cures Act, medical imaging exams and procedure reports are released immediately into your electronic medical record. You may view this report before your referring provider. If you have questions, please contact your health care provider. INDICATION: Leg pain and swelling. TECHNIQUE: Ultrasound venous duplex lower right extremity. Compression venous exam was performed using greenberg-scale, color Doppler, and spectral Doppler analysis. COMPARISON: None. FINDINGS: Deep veins: Sonographic imaging demonstrates t lack of compressibility, with heterogeneous echogenic material within the lumen of the proximal deep femoral vein, proximal mid and distal femoral vein, as well as extending into the popliteal vein. Parts of the echogenic material are also seen extending to the common femoral vein.. Superficial veins: Greater saphenous vein is fully compressible. No popliteal cyst. IMPRESSION: Extensive occlusive DVT in the right lower extremity from distal common femoral vein through past the popliteal vein. Findings discussed with Dr. Escobar at 7:41 pm on via telephone by Dr. Simpson. Dictated by Carlota Simpson MD @ 08/26/2022 7:43:05 PM (Electronically Signed)
--- NOTE | 2022-08-26 19:14 | CRLHL7_ITS ---
For Patients: As a result of the Century Cures Act, medical imaging exams and procedure reports are released immediately into your electronic medical record. You may view this report before your referring provider. If you have questions, please contact your health care provider. INDICATION: Extensive deep venous thrombosis TECHNIQUE: CT chest with i.v. contrast using pulmonary angiographic technique. Coronal and sagittal reformats were obtained. CONTRAST: 95 mL Isovue 370 COMPARISON: None FINDINGS: Cardiovascular: Acute pulmonary emboli are present in the lower lobes bilaterally and in the right upper lobe. Moderate enlargement of the main pulmonary artery is present and measures 3.7 cm in maximal short axis. The heart has an unremarkable appearance and size. No sign of aneurysm in the thoracic aorta. Mediastinum: No mass or adenopathy seen. Enlargement of the left thyroid lobe is no with a dominant hypodense lesion measuring 4.2 cm. Lung: Both lungs are unremarkable in appearance. Pleura and pericardium: No sign of pleural effusion seen. No significant pericardial effusion is present. Chest wall and axilla: No mass or adenopathy seen. Bone: Unremarkable for age. Upper abdomen: Unremarkable. IMPRESSIONS: 1. Acute pulmonary emboli are present in the lower lobes bilaterally and in the right upper lobe. 2. Enlargement of the left thyroid lobe is no with a dominant hypodense lesion measuring 4.2 cm. Further assessment with outpatient thyroid ultrasound is recommended. 3. Moderate enlargement of the main pulmonary artery is present and measures 3.7 cm in maximal short axis. This is likely due to pulmonary hypertension. The findings were discussed with Dr. Arias at 9:05 PM. Dictated by Balwinder Anne MD @ 08/26/2022 9:05:39 PM Please note that all CT scans at this facility use dose modulation, iterative reconstruction, and/or weight-based dosing when appropriate to reduce radiation dose to as low as reasonably achievable. Dictated by: Balwinder Anne MD @ 08/26/2022 21:05:47 (Electronically Signed)
[2022-08-26 19:43] LABS: Basophils Absolute Auto 0.04 K/uL (0.00-0.30); Basophils Percent Auto 0.4 % (0.0-3.0); Eosinophils Absolute Auto 0.29 K/uL (0.00-0.50); Eosinophils Percent Auto 2.8 % (0.0-7.0); Hematocrit 41.7 % (33.0-51.0); Immature Granulocytes Abs Auto 0.05 K/uL (0.00-0.30); Immature Granulocytes Pct Auto 0.5 %; Lymphocytes Percent Auto 12.7 % (20-44); Mean Corpuscular HGB Conc 34 gm/dL (32-36); Mean Corpuscular Hemoglobin 33 pg (26-34); Mean Corpuscular Volume 99 fL (80-100); Monocytes Percent Auto 6.7 % (0.0-11.0); Neutrophils Percent Auto 76.9 % (42.0-72.0); Platelet Count* 193 K/uL (140-440); RDW Coefficient of Variation % 13.1 % (11.5-15.5); Red Blood Count 4.23 m/uL (4.00-5.20); White Blood Count* 10.18 K/uL (4.50-11.00)
[2022-08-26 19:47] LABS: Slide Review Reflex No
[2022-08-26] MEDS: APIXABAN 5 MG TABLET 10 MG PO (19:52)
[2022-08-26 20:02] LABS: INR 1.37 (0.91-1.10); Prothrombin Time 17.6 Seconds
[2022-08-26 20:05] LABS: Albumin* 4.3 g/dL (3.3-5.0); Chloride* 104 mmol/L (96-114)
[2022-08-26 20:06] LABS: Potassium* 4.1 mmol/L (3.6-5.1); Sodium* 139 mmol/L (135-149)
[2022-08-26 20:08] LABS: Aspartate Amino Transferase* 22 U/L (12-35); Bilirubin Direct* 0.3 mg/dL (0.0-0.5); Bilirubin Total* 0.7 mg/dL (0.1-1.5); Carbon Dioxide* 30 mmol/L (20-32); Creatinine* 0.8 mg/dL (0.5-1.5); Estimated Glomerular Filt Rate 81 ml/min; Total Protein* 7.8 g/dL (6.0-8.3)
[2022-08-26 20:09] LABS: Alanine Aminotransferase* 19 U/L (4-35); Alkaline Phosphatase* 111 U/L (40-150); Blood Urea Nitrogen* 17 mg/dL (7-30); Calcium* 9.1 mg/dL (8.4-10.6); Glucose* 153 mg/dL (60-115)
[2022-08-26 20:29] LABS: Erythrocyte SedimentationRate* 32 mm/hr (2-20)
[2022-08-26 21:55] VITALS: BP 177/109; PULSE 83; RESP 18; O2SAT 98
== END 2022-08-26 21:56 | disposition home or self-care (01) ==
PROVIDERS: Emergency Provider Emergency Medicine Emergency Medical Services; PCP Physician Assistant
DX: I82.401 Acute embolism and thrombosis of unspecified deep veins of right lower extremity (principal); I26.99 Other pulmonary embolism without acute cor pulmonale
CPT/HCPCS: 36415; 71260; 80048; 80076; 84703; 85025; 85610; 85651; 93971; 99285; A9270; Q9967

== ENCOUNTER 2025-04-12 11:47 | Outpatient (CLI) | payer MEDICARE, BC, SELFPAY ==
--- NOTE | 2025-04-12 12:15 | MR_ITS ---
[facility] [address] [facility] [address] Phone:?[phone] Fax:?[phone] Referring Physician Information: Timmy Galvez M.D. [address] [facility] [address] Phone:?[phone] Fax:?[phone] Patient:Mateusz Cohen D.O.B:?1955 Sex:?Female Phone:?[phone] [facility] MRN:?[id number] Exam Date:?04/12/2025 EXAM: MRI OF THE LEFT SHOULDER CLINICAL INFORMATION: The patient is a 69-year-old with left shoulder pain. Evaluate for rotator cuff tear. PRIOR SURGERY: The patient has a history of prior surgery to the region. COMPARISON STUDIES: Comparison is made to prior radiographs dated 04/06/2025. TECHNICAL INFORMATION: Imaging was performed on a high-field, 1.5 [employer] MR scanner. Axial, coronal, and sagittal proton-density and T2 imaging of the left shoulder was performed in addition to coronal STIR imaging. FINDINGS: Articular/Extraarticular collections: Effusion: Mild to moderate. Subacromial/subdeltoid: Moderate fluid is seen within the subacromial/subdeltoid bursa, in keeping with changes of bursitis. Subcoracoid: No evidence for bursitis. Osseous structures: Proximal humerus: Postoperative changes of the greater tuberosity region are present, in keeping with prior supraspinatus tendon repair. There is no evidence for greater or lesser tuberosity fracture. Degenerative changes along the superior articular surfaces of the humeral head can be seen on coronal series 5 image 13. Glenoid: No acute bony abnormality of the glenoid fossa or glenoid neck can be seen. Acromioclavicular joint: There is evidence for prior acromioplasty and distal clavicular resection. Coracoacromial arch: Acromion morphology: Type I. No evidence for os acromiale. Acromiohumeral space: Mildly narrowed. Coracohumeral space: Mildly narrowed. Rotator cuff and deltoid: Supraspinatus: The patient is status post supraspinatus tendon repair. There is a recurrent, full-thickness tear of the distal tendon fibers of the supraspinatus tendon seen on coronal series 5 image 17 and on sagittal series 9 image 7. The area of full-thickness tearing measures approximately 15 mm in mediolateral dimension and 15 mm in anteroposterior dimension. Mild atrophic changes of the supraspinatus muscle belly are identified. Infraspinatus: Moderate infraspinatus tendinosis can be seen. There is no evidence for full or partial-thickness tearing. Mild to moderate atrophic changes of the infraspinatus muscle belly are present. Teres minor: No evidence for tendinosis, tearing, or associated muscle belly atrophy. Subscapularis: Moderate subscapularis tendinosis can be seen. There is no evidence for full or partial-thickness tearing. Mild to moderate atrophic changes of the subscapularis muscle belly are noted. Deltoid: No evidence for strain or tearing. Biceps tendon: The intra-articular portion of the long head of the biceps tendon is poorly visualized. The biceps tendon is attenuated within the biceps sulcus. The findings are in keeping with an intra-articular rupture of the long head of the biceps tendon with subsequent retraction. Glenohumeral joint and labrum: Articular Cartilage: Chondromalacia and chondral thinning along the articular surfaces of the glenohumeral articulation can be seen. Underlying bony changes along the superior articular surfaces of the humeral head are present. Labrum: Degeneration, blunting, and poorly defined tearing of the entire glenoid labrum can be seen. No definite paralabral ganglion cyst formation is identified. Capsular Soft Tissues: No definite capsular abnormalities of the glenohumeral joint are seen. No evidence for capsular tearing is present and there are no MR signs of adhesive capsulitis. CONCLUSION: 1. Status post supraspinatus repair. There is a recurrent full-thickness tear of the distal supraspinatus tendon fibers as described above. 2. Moderate infraspinatus and subscapularis tendinosis with associated muscle belly atrophy. 3. Status post acromioplasty and distal clavicular resection. The acromiohumeral distance is mildly narrowed. 4. Suspected intra-articular rupture of the long head of the biceps tendon with subsequent retraction. 5. Chondromalacia and chondral loss along the articular surfaces of the glenohumeral articulation. 6. Mild to moderate glenohumeral joint effusion and moderate subacromial/subdeltoid bursitis. AEC Electronically signed on 04/13/2025 6:44:00 AM by Danny Rebollar M.D.
== END 2025-04-12 11:48 | disposition home or self-care (01) ==
LOC: MRI 11:50
PROVIDERS: PCP Family Medicine; Visit Provider Orthopaedic Surgery
DX: M25.512 Pain in left shoulder (principal); S43.432A Superior glenoid labrum lesion of left shoulder, initial encounter; M94.212 Chondromalacia, left shoulder; M25.412 Effusion, left shoulder; M75.52 Bursitis of left shoulder
CPT/HCPCS: 73221

== ENCOUNTER 2025-07-19 08:37 | Outpatient (CLI) | payer MEDICARE, BC, SELFPAY | END 2025-07-19 08:38 | disposition home or self-care (01) | LOC: CT 08:38 | PROVIDERS: PCP Family Medicine; Visit Provider Orthopaedic Surgery Sports Medicine | DX: M19.112 Post-traumatic osteoarthritis, left shoulder (principal) | CPT/HCPCS: 73200 ==